=== PATIENT | male | born 1990 | race Caucasian/White ===

== ENCOUNTER 2016-09-30 23:03 | Emergency (ER) | payer SELFPAY ==
[2016-09-30] MEDS ORDERED: Albuterol-Ipratrop 3 mg / 0.5 (3 ml) UD IH STA (23:38)
--- NOTE | 2016-09-30 23:41 | ED PDOC ---
HPI: CCC, URI, Sore Throat Time Seen by Provider: 09/30/16 23:25 Chief Complaint (Nursing): Back Pain Chief Complaint (Provider): cough History Per: Patient History/Exam Limitations: no limitations Onset/Duration Of Symptoms: Days (2) Current Symptoms Are (Timing): Still Present Associated Symptoms: Chills, Cough Additional History Per: Patient Additional Complaint(s): 25 y/o male presents with dry persistent cough x 2 days. Associated pain to upper back, chest; worse with coughing. No relief with Nyquil. Denies fever, nausea/vomiting, ear pain, throat pain, shortness of breath, palpitations, abdominal pain, recent travel, sick contacts. Past Medical History Reviewed: Historical Data, Nursing Documentation, Vital Signs Vital Signs: Last Vital Signs Temp 99.0 F 10/01/16 01:10 Pulse 87 10/01/16 01:10 Resp 18 10/01/16 01:10 BP 124/78 10/01/16 01:10 Pulse Ox 97 10/01/16 01:10 - Medical History PMH: No Chronic Diseases - Surgical History Surgical History: No Surg Hx - Family History Family History: States: Unknown Family Hx - Immunization History Hx Tetanus Toxoid Vaccination: Yes Hx Influenza Vaccination: No Hx Pneumococcal Vaccination: No - Home Medications Home Medications: Ambulatory Orders Medication Instructions Recorded Naproxen [Naprosyn Tab] 250 mg PO Q12 #20 tab 10/06/15 traMADol [Ultram] 50 mg PO TID #16 tab 10/06/15 Albuterol HFA [Ventolin HFA 90 1 puff IH Q4 PRN #1 inh 10/01/16 mcg/actuation (8 g)] Azithromycin [Zithromax] 250 mg PO DAILY #1 packet 10/01/16 Promethazine HCl/Codeine 5 ml PO HS PRN #50 ml 10/01/16 [Prometh-Codein 6.25-10 mg/5 ml] - Allergies Allergies/Adverse Reactions: Allergies Allergy/AdvReac Type Severity Reaction Status Date / Time No Known Allergies Allergy Verified 10/06/15 00:56 Review of Systems ROS Statement: Except As Marked, All Systems Reviewed And Found Negative Constitutional: Positive for: Chills Cardiovascular: Positive for: Chest Pain Respiratory: Positive for: Cough Physical Exam - Reviewed Nursing Documentation Reviewed: Yes Vital Signs Reviewed: Yes - Physical Exam Appears: Positive for: Well, Non-toxic, No Acute Distress (actively coughing) Head Exam: Positive for: ATRAUMATIC, NORMAL INSPECTION, NORMOCEPHALIC Skin: Positive for: Normal Color Eye Exam: Positive for: Normal appearance ENT: Positive for: Normal ENT Inspection Cardiovascular/Chest: Positive for: Regular Rate, Rhythm. Negative for: Chest Non Tender (tender to palpation anterior/lateral chest wall) Respiratory: Positive for: Normal Breath Sounds Gastrointestinal/Abdominal: Positive for: Normal Exam Extremity: Positive for: Normal ROM Neurologic/Psych: Positive for: Alert, Oriented - ECG ECG: Positive for: Viewed By Me (reviewed by ED attending) ECG Rhythm: Positive for: Sinus Tachycardia O2 Sat by Pulse Oximetry: 99 - Radiology X-Ray: Viewed By Me X-Ray Interpretation: No Acute Disease - Progress ED Course And Treament: flu, strep, chest xray, duoneb, ibuprofen PO On re-eval, patient states he is feeling better. Patient educated on findings, discharged with rx Albuterol HFA, Zpak, Promethazine with codeine. Advised follow up PMD 2-3 days. Ibuprofen PRN pain/fever. Return to ED for worsening/concerning symptoms. Disposition - Clinical Impression Clinical Impression: Bronchitis - Patient ED Disposition Is Patient to be Admitted: No Counseled Patient/Family Regarding: Studies Performed, Diagnosis, Need For Followup, Rx Given - Disposition Referrals: [facility] [Outside] Disposition: Routine/Home Disposition Time: 01:43 Condition: IMPROVED Additional Instructions: Follow up with primary doctor in 2-3 days. Take medication as directed. Take Ibuprofen as directed, as needed for pain/fever. Return to ED for worsening/concerning symptoms. Prescriptions: Promethazine HCl/Codeine [Prometh-Codein 6.25-10 mg/5 ml] 5 ml PO HS PRN #50 ml PRN Reason: Cough Albuterol HFA [Ventolin HFA 90 mcg/actuation (8 g)] 1 puff IH Q4 PRN #1 inh PRN Reason: Wheezing Azithromycin [Zithromax] 250 mg PO DAILY #1 packet Instructions: Acute Bronchitis (ED)
[2016-10-01 01:30] VITALS: BP 124/78; PULSE 87; RESP 18; TEMP 99
[2016-10-01 01:44] VITALS: O2SAT 99
--- NOTE | 2016-10-01 07:08 | CARD ---
APPROVED REPORT EKG Measurement Heart [id number] <Conclusion> Sinus tachycardia Otherwise normal ECG
--- NOTE | 2016-10-01 10:33 | RAD ---
HISTORY: cough COMPARISON: Chest x-ray performed 10/06/15 TECHNIQUE: Chest PA and lateral FINDINGS: LUNGS: Retrocardiac rounded density of unclear significance. Please note that chest x-ray has limited sensitivity for the detection of pulmonary masses. PLEURA: No significant pleural effusion identified. No definite pneumothorax . CARDIOVASCULAR: The cardiomediastinal silhouette appears within normal limits of size. OSSEOUS STRUCTURES: No acute osseous abnormality identified. VISUALIZED UPPER ABDOMEN: Unremarkable. OTHER FINDINGS: None. IMPRESSION: Retrocardiac rounded density of unclear significance. This may be artifactual, however focal consolidation or adenopathy/neoplasm cannot be excluded. Recommend further evaluation with CT chest with contrast. Study marked for PA review.
== END 2016-10-01 02:02 | disposition home or self-care (01) ==
LOC: H.ER 23:03
DX: J40 Bronchitis, not specified as acute or chronic (principal); R00.0 Tachycardia, unspecified; R05 Cough